=== PATIENT | female | born 1935 | race Caucasian/White ===

== ENCOUNTER 2017-05-09 08:52 | Emergency (ER) | payer MEDICARE, OTHER ==
[2017-05-09 09:46] LABS: #Basophils 0.1 thou/uL (0.0-0.2); #Eosinphils 0.1 thou/uL (0.0-0.7); #Lymphocytes 2.3 thou/uL (1.20-3.40); #Monocytes 0.5 thou/uL (0.11-0.59); #Neutrophils 10.7 thou/uL (1.40-6.50); %Basophils 0.5 % (0.0-1.0); %Eosinophils 0.5 % (0.0-10.0); %Lymphocytes 16.7 % (21.0-51.0); %Monocytes 3.8 % (0.0-10.0); %Neutrophils 78.5 % (42.0-75.0); Hemoglobin 11.2 g/dL (12.0-16.0); Mean Corpuscular HGB CONC 31.4 g/dL (32.0-36.0); Mean Corpuscular Hemoglobin 30.7 pg (27.0-31.0); Mean Corpuscular Volume 97.8 fl (81.0-99.0); Mean Platelet Volume 7.7 fL (7.4-10.4); Platelet Count 244 thou/uL (130-400); RBC Distribution Width 14.8 % (11.5-14.5); Red Blood Cell (RBC) Count 3.65 mill/uL (4.20-5.40); White Blood Cell (WBC) Count 13.6 thou/uL (4.8-10.8)
[2017-05-09 10:11] LABS: ALT (SGPT) 10 U/L (8-55); AST (SGOT) 11 U/L (5-34); Albumin 3.4 g/dL (3.4-4.8); Alkaline Phosphatase 117 U/L (40-150); Anion Gap 13 mmol/L (10-20); BUN (Urea Nitrogen) 37 mg/dL (9.8-20.1); Bilirubin, Total 0.8 mg/dL (0.2-1.2); CRP (Inflammatory) 0.5 mg/dL (= or < 0.5); Calc. Creatinine Clearance 0 mL/min (70-130); Calcium 9.7 mg/dL (7.8-10.44); Carbon Dioxide 23 mmol/L (23-31); Chloride 105 mmol/L (98-107); Estimated GFR-MDRD 49; Globulin 3.4 g/dL (2.4-3.5); Glucose 147 mg/dL (83-110); Potassium 5.2 mmol/L (3.5-5.1); Protein, Total 6.8 g/dL (6.0-8.3); Sodium 136 mmol/L (136-145); Uric Acid 3.7 mg/dL (2.6-6.0)
[2017-05-09] MEDS ORDERED: predniSONE 20 MG TAB ONE (11:23)
--- NOTE | 2017-05-17 18:03 | EKG ---
Test Reason : L ARM PAIN Blood Pressure : / mmHG Vent. Rate : 063 BPM Atrial Rate : 063 BPM P-R Int : 172 ms QRS Dur : 082 ms QT Int : 382 ms P-R-T Axes : -04 -25 076 degrees QTc Int : 390 ms Normal sinus rhythm Moderate voltage criteria for LVH, may be normal variant Borderline ECG Confirmed by JONH AVINA, HERNANDO ([id number]), videotape editor CARRI SOLORIO ([id number]) on 05/17/2017 6:03:12 PM Referred By: Confirmed By:HERNANDO BORJA MD
== END 2017-05-09 11:48 | disposition home or self-care (01) ==
LOC: ERS 08:52
DX: M19.042 Primary osteoarthritis, left hand (principal); E78.5 Hyperlipidemia, unspecified; E11.9 Type 2 diabetes mellitus without complications; E03.9 Hypothyroidism, unspecified; I10 Essential (primary) hypertension; I25.10 Atherosclerotic heart disease of native coronary artery without angina pectoris; K21.9 Gastro-esophageal reflux disease without esophagitis; Z86.73 Personal history of transient ischemic attack (TIA), and cerebral infarction without residual deficits
CPT/HCPCS: 36415; 80053; 84550; 85025; 85652; 86140; 93005; J7506

== ENCOUNTER 2019-03-10 09:10 | Outpatient (CLI) | payer MEDICARE ==
--- NOTE | 2019-03-10 10:49 | ULT ---
RENAL ULTRASOUND: 03/10/2019 PROVIDED CLINICAL HISTORY: Chronic kidney disease. COMPARISON: 05/28/2016 FINDINGS: The right kidney measures about 10.4 x 5.5 x 6 cm and demonstrates no evidence for hydronephrosis. Nu merous cysts are present, some of which demonstrate apparently thickened internal septations. No defi nite uniformly solid mass or evidence for a sonographically apparent calculus. The left kidney measures about 12.3 x 6.1 x 6.2 cm and demonstrates numerous renal cysts, some of whi ch demonstrate internal septation. No evidence for a uniformly solid mass or sonographically apparent calculus. No evidence for hydronephrosis. The urinary bladder is decompressed and not well evaluated. IMPRESSION: 1. No evidence for hydronephrosis. 2. Bilateral renal cysts, some of which appear complex and are incompletely characterized sonographic ally. Evaluation for stability with regard to the prior imaging study is difficult on the basis of di fferences in sonographic interrogation. Correlation with CT with and without intravenous contrast may be useful for further characterization. POS: OFF
== END 2019-03-10 09:11 | disposition home or self-care (01) ==
LOC: BICULT 09:10
PROVIDERS: ATTEND Internal Medicine Nephrology
DX: I12.9 Hypertensive chronic kidney disease with stage 1 through stage 4 chronic kidney disease, or unspecified chronic kidney disease (principal); N18.3 Chronic kidney disease, stage 3 (moderate); N28.1 Cyst of kidney, acquired
CPT/HCPCS: 76770

== ENCOUNTER 2021-09-28 12:34 | Inpatient (IN) | payer MEDICARE ==
[2021-09-28 13:18] LABS: #Basophils 0.1 thou/uL (0.0-0.2); #Eosinphils 0.5 thou/uL (0.0-0.7); #Lymphocytes 1.7 thou/uL (1.20-3.40); #Neutrophils 6.7 thou/uL (1.40-6.50); %Basophils 0.5 % (0.0-1.0); %Eosinophils 4.6 % (0.0-10.0); %Lymphocytes 17.5 % (21.0-51.0); %Monocytes 10.1 % (0.0-10.0); %Neutrophils 67.3 % (42.0-75.0); Hemoglobin 9.4 g/dL (12.0-16.0); Mean Corpuscular HGB CONC 32.1 g/dL (32.0-36.0); Mean Corpuscular Hemoglobin 31.1 pg (27.0-31.0); Mean Corpuscular Volume 97.1 fL (78.0-98.0); Mean Platelet Volume 7.4 fL (7.4-10.4); Platelet Count 253 thou/uL (130-400); RBC Distribution Width 14.6 % (11.5-14.5); Red Blood Cell (RBC) Count 3.01 mill/uL (4.20-5.40); White Blood Cell (WBC) Count 9.9 thou/uL (4.8-10.8)
[2021-09-28 13:38] LABS: ALT (SGPT) 12 U/L (8-55); AST (SGOT) 14 U/L (5-34); Alkaline Phosphatase 146 U/L (40-110); Anion Gap 15 mmol/L (10-20); BUN (Urea Nitrogen) 61 mg/dL (9.8-20.1); Bilirubin, Total 0.6 mg/dL (0.2-1.2); Calc. Creatinine Clearance 0 mL/min (70-130); Calcium 9.1 mg/dL (7.8-10.44); Carbon Dioxide 20 mmol/L (23-31); Chloride 93 mmol/L (98-107); Estimated GFR 19; Globulin 3.2 g/dL (2.4-3.5); Glucose 118 mg/dL (83-110); Potassium 4.6 mmol/L (3.5-5.1); Protein, Total 6.2 g/dL (5.8-8.1); Sodium 123 mmol/L (136-145)
[2021-09-28 13:53] LABS: Bacteria/HPF 1+ HPF (None Seen); Bilirubin Negative (Negative); Blood, Urine Negative (Negative); Clarity Extra Turbid (Clear); Glucose, Urine (Dipstick) Normal (Negative); Ketone, Urine Negative (Negative); Leukocyte 500 Leu/uL (Negative); Nitrite 1+ (Negative); Protein, Urine (Dipstick) 30 mg/dL (Neg-Trace); RBC/HPF 0-3 HPF (0-3); Specific Gravity, Urine 1.007 (1.002-1.036); Squamous Epithelial 0-3 HPF (0-3); Urobilinogen Normal mg/dL (Less than 2); WBC/HPF Greater than 50 HPF (0-3); pH, Urine 5.5 (5.0-9.0)
[2021-09-28] MEDS ORDERED: Acetaminophen 500 MG TAB ONE (16:33)
[2021-09-28] MEDS ORDERED: Ondansetron PF 4 MG/2 ML Vial ONE (16:39)
[2021-09-28] MEDS ORDERED: Morphine 2 MG/ML VIAL ONE (16:40)
[2021-09-28] MEDS ORDERED: cefTRIAXone\\ROCEPHIN 1 GM VIAL ONE (16:52)
[2021-09-28] MEDS ORDERED: HumaLOG 300 UNITS/3 ML VIAL SC PRN ×2 (17:30)
[2021-09-28] MEDS ORDERED: Dextrose 5% in Water 1,000 ML IV PRN (17:30)
[2021-09-28] MEDS ORDERED: Dextrose 50% Abboject 50 ML SYRINGE SLOW IVP PRN (17:30)
[2021-09-28] MEDS ORDERED: Non-Formulary Item 1 EACH (Acetaminophen [Tylenol] 325 MG Capsule) PO PRN (18:36)
[2021-09-28 19:41] VITALS: BMI 28.3
[2021-09-28] MEDS ORDERED: Acetaminophen 500 MG TAB PO SCH (19:45)
[2021-09-28] MEDS ORDERED: Lactated Ringer's 1,000 ML IV SCH (19:45)
[2021-09-28] MEDS: Heparin 5,000 UNITS/ML VIAL SC SCH (20:02)
[2021-09-28] MEDS: Atorvastatin Calcium 40 MG TAB PO SCH (20:09)
[2021-09-28] MEDS: Amlodipine 10 MG TAB PO SCH (20:10)
[2021-09-28] MEDS: Carvedilol 25 MG TAB PO SCH (20:10)
[2021-09-28] MEDS: Montelukast Sodium 10 mg Tablet PO SCH (20:10)
[2021-09-28] MEDS: Aspirin Chewable 81 MG TAB PO SCH (20:10)
[2021-09-28 23:38] LABS: Anion Gap 16 mmol/L (10-20); BUN (Urea Nitrogen) 63 mg/dL (9.8-20.1); Calc. Creatinine Clearance 19 mL/min (70-130); Carbon Dioxide 17 mmol/L (23-31); Chloride 95 mmol/L (98-107); Estimated GFR 20; Glucose 107 mg/dL (83-110); Potassium 5.4 mmol/L (3.5-5.1); Sodium 123 mmol/L (136-145)
[2021-09-28] MEDS ORDERED: Cosyntropin 250 MCG VIAL SLOW IVP SCH (23:45)
[2021-09-29] MEDS ORDERED: Sodium Bicarbonate Tab 325 MG TAB PO SCH ×2 (00:30→09:00)
[2021-09-29] MEDS: Levothyroxine Sodium 112 MCG TAB PO SCH (05:58)
[2021-09-29] MEDS: Levothyroxine Sodium 25 MCG TAB PO SCH (05:58)
[2021-09-29 06:51] LABS: Anion Gap 10 mmol/L (10-20); BUN (Urea Nitrogen) 59 mg/dL (9.8-20.1); Calc. Creatinine Clearance 20 mL/min (70-130); Calcium 8.7 mg/dL (7.8-10.44); Carbon Dioxide 23 mmol/L (23-31); Chloride 97 mmol/L (98-107); Estimated GFR 21; Glucose 81 mg/dL (83-110); Potassium 4.8 mmol/L (3.5-5.1); Sodium 125 mmol/L (136-145)
[2021-09-29] MEDS: Carvedilol 25 MG TAB PO SCH ×2 (08:51→20:39)
[2021-09-29] MEDS: Gabapentin 100 MG CAP PO SCH (08:51)
[2021-09-29] MEDS: Heparin 5,000 UNITS/ML VIAL SC SCH ×3 (08:51→19:04)
[2021-09-29] MEDS ORDERED: LEVOTHYROXINE SODIUM 125 MCG PO SCH (09:00)
[2021-09-29] MEDS ORDERED: Trospium 20 MG TAB PO SCH (09:00)
[2021-09-29] MEDS: Acetaminophen 325 MG TAB PO PRN (11:02)
[2021-09-29] MEDS: Diclofenac 1% 100 GM GEL TP SCH ×3 (12:51→20:33)
[2021-09-29] MEDS ORDERED: Magnevist 469MG/ML 20 ML VIAL ONE (15:31)
[2021-09-29] MEDS: cefTRIAXone\\ROCEPHIN 1 GM in Sodium Chloride 0.9% 100 ML IVPB SCH (16:27)
[2021-09-29 18:28] LABS: BUN (Urea Nitrogen) 59 mg/dL (9.8-20.1); Calc. Creatinine Clearance 19 mL/min (70-130); Calcium 8.6 mg/dL (7.8-10.44); Carbon Dioxide 15 mmol/L (23-31); Chloride 98 mmol/L (98-107); Estimated GFR 20; Glucose 149 mg/dL (83-110); Potassium 5.6 mmol/L (3.5-5.1); Sodium 123 mmol/L (136-145)
[2021-09-29 18:43] LABS: Anion Gap 19 mmol/L (10-20)
[2021-09-29] MEDS: Aspirin Chewable 81 MG TAB PO SCH (19:04)
[2021-09-29] MEDS ORDERED: Furosemide 20 MG TAB PO SCH (19:15)
[2021-09-29] MEDS: Montelukast Sodium 10 mg Tablet PO SCH (20:39)
[2021-09-29] MEDS: Atorvastatin Calcium 40 MG TAB PO SCH (20:39)
[2021-09-29] MEDS: Amlodipine 10 MG TAB PO SCH (20:39)
[2021-09-29] MEDS: Sodium Bicarbonate Tab 325 MG TAB PO SCH (20:39)
[2021-09-30] MEDS: Levothyroxine Sodium 25 MCG TAB PO SCH (05:58)
[2021-09-30] MEDS: Levothyroxine Sodium 112 MCG TAB PO SCH (05:58)
[2021-09-30 07:02] LABS: Anion Gap 14 mmol/L (10-20); BUN (Urea Nitrogen) 62 mg/dL (9.8-20.1); Calc. Creatinine Clearance 18 mL/min (70-130); Carbon Dioxide 21 mmol/L (23-31); Chloride 99 mmol/L (98-107); Estimated GFR 19; Glucose 109 mg/dL (83-110); Sodium 129 mmol/L (136-145)
[2021-09-30] MEDS: Sodium Bicarbonate Tab 325 MG TAB PO SCH ×2 (07:55→22:14)
[2021-09-30] MEDS: Gabapentin 100 MG CAP PO SCH (07:56)
[2021-09-30] MEDS: Carvedilol 25 MG TAB PO SCH ×2 (07:56→22:15)
[2021-09-30] MEDS: Diclofenac 1% 100 GM GEL TP SCH ×4 (07:57→22:17)
[2021-09-30] MEDS: Heparin 5,000 UNITS/ML VIAL SC SCH ×3 (07:57→22:15)
[2021-09-30] MEDS ORDERED: Furosemide 20 MG TAB PO SCH (09:00)
[2021-09-30] MEDS: Acetaminophen 325 MG TAB PO PRN ×2 (11:46→22:15)
[2021-09-30] MEDS: cefTRIAXone\\ROCEPHIN 1 GM in Sodium Chloride 0.9% 100 ML IVPB SCH (16:48)
[2021-09-30 18:25] LABS: Anion Gap 13 mmol/L (10-20); BUN (Urea Nitrogen) 58 mg/dL (9.8-20.1); Calc. Creatinine Clearance 20 mL/min (70-130); Calcium 8.8 mg/dL (7.8-10.44); Carbon Dioxide 22 mmol/L (23-31); Chloride 98 mmol/L (98-107); Estimated GFR 22; Glucose 118 mg/dL (83-110); Potassium 4.4 mmol/L (3.5-5.1); Sodium 129 mmol/L (136-145)
[2021-09-30] MEDS: Amlodipine 10 MG TAB PO SCH (22:14)
[2021-09-30] MEDS: Montelukast Sodium 10 mg Tablet PO SCH (22:14)
[2021-09-30] MEDS: Aspirin Chewable 81 MG TAB PO SCH (22:15)
[2021-09-30] MEDS: Atorvastatin Calcium 40 MG TAB PO SCH (22:15)
[2021-10-01] MEDS: Acetaminophen 325 MG TAB PO PRN (05:14)
[2021-10-01] MEDS: Levothyroxine Sodium 112 MCG TAB PO SCH (05:19)
[2021-10-01] MEDS: Levothyroxine Sodium 25 MCG TAB PO SCH (05:21)
[2021-10-01 06:55] LABS: Anion Gap 13 mmol/L (10-20); BUN (Urea Nitrogen) 56 mg/dL (9.8-20.1); Calc. Creatinine Clearance 24 mL/min (70-130); Carbon Dioxide 22 mmol/L (23-31); Chloride 100 mmol/L (98-107); Estimated GFR 26; Glucose 110 mg/dL (83-110); Potassium 4.6 mmol/L (3.5-5.1); Sodium 130 mmol/L (136-145)
[2021-10-01] MEDS: Carvedilol 25 MG TAB PO SCH (08:01)
[2021-10-01] MEDS: Heparin 5,000 UNITS/ML VIAL SC SCH (08:01)
[2021-10-01] MEDS: Sodium Bicarbonate Tab 325 MG TAB PO SCH (08:01)
[2021-10-01] MEDS: Diclofenac 1% 100 GM GEL TP SCH ×2 (08:02→12:30)
[2021-10-01 08:29] VITALS: TEMP 97.6
[2021-10-01] MEDS ORDERED: Ondansetron PF 4 MG/2 ML Vial ONE (10:35)
[2021-10-01] MEDS ORDERED: Morphine 2 MG/ML VIAL ONE (10:35)
[2021-10-01] MEDS ORDERED: Lisinopril 5 MG TAB PO SCH (11:30)
[2021-10-01 12:30] VITALS: BP 147/72
[2021-10-02] MEDS ORDERED: Lisinopril 5 MG TAB PO SCH (09:00)
== END 2021-10-01 16:10 | disposition home health service (06) | DRG 644 ==
LOC: ERS 12:34 → T4-A 17:30 → OBSVTOIN 10-01 12:25
PROVIDERS: ADMIT Student in an Organized Health Care Education/Training Program; ATTEND Student in an Organized Health Care Education/Training Program
DX: E22.2 Syndrome of inappropriate secretion of antidiuretic hormone (principal); N30.00 Acute cystitis without hematuria; N25.81 Secondary hyperparathyroidism of renal origin; N18.4 Chronic kidney disease, stage 4 (severe); K86.3 Pseudocyst of pancreas; Z20.822 Contact with and (suspected) exposure to COVID-19; E87.5 Hyperkalemia; E78.5 Hyperlipidemia, unspecified; K86.89 Other specified diseases of pancreas; E03.9 Hypothyroidism, unspecified; M10.9 Gout, unspecified; E11.22 Type 2 diabetes mellitus with diabetic chronic kidney disease; I12.9 Hypertensive chronic kidney disease with stage 1 through stage 4 chronic kidney disease, or unspecified chronic kidney disease; N32.81 Overactive bladder; J30.9 Allergic rhinitis, unspecified; K21.9 Gastro-esophageal reflux disease without esophagitis; M19.90 Unspecified osteoarthritis, unspecified site; F41.9 Anxiety disorder, unspecified; D63.1 Anemia in chronic kidney disease; I44.0 Atrioventricular block, first degree; Z79.899 Other long term (current) drug therapy; Z79.890 Hormone replacement therapy; Z79.84 Long term (current) use of oral hypoglycemic drugs; Z79.82 Long term (current) use of aspirin; Z86.73 Personal history of transient ischemic attack (TIA), and cerebral infarction without residual deficits; Z98.49 Cataract extraction status, unspecified eye; Z90.710 Acquired absence of both cervix and uterus; Z82.49 Family history of ischemic heart disease and other diseases of the circulatory system; Z87.440 Personal history of urinary (tract) infections
CPT/HCPCS: 36415; 36416; 74176; 74183; 80048; 80053; 80400; 81003; 81015; 83605; 83930; 83935; 84300; 84443; 85025; 87040; 87086; 93005; 93010; 96365; 96366; 96375; A9579; G0378; J0696; J0834; J1644; J2270; J2405; J3490; U0003; U0005

== ENCOUNTER 2022-02-05 14:37 | Outpatient (CLI) | payer MEDICARE | END 2022-02-05 14:38 | disposition home or self-care (01) | LOC: DTY/OP 14:37 | PROVIDERS: ATTEND Family Medicine | DX: I12.9 Hypertensive chronic kidney disease with stage 1 through stage 4 chronic kidney disease, or unspecified chronic kidney disease (principal); E11.21 Type 2 diabetes mellitus with diabetic nephropathy; E11.22 Type 2 diabetes mellitus with diabetic chronic kidney disease; N18.4 Chronic kidney disease, stage 4 (severe) | CPT/HCPCS: 97802 ==

== ENCOUNTER 2022-03-17 22:03 | Inpatient (IN) | payer MEDICARE ==
[2022-03-17] MEDS ORDERED: Ondansetron PF 4 MG/2 ML Vial ONE (22:32)
[2022-03-17] MEDS ORDERED: Albuterol 200 PUFF (6.7GM INHALER) ONE (22:36)
[2022-03-17 22:46] LABS: #Monocytes 0.5 thou/uL (0.11-0.59); #Neutrophils 9.1 thou/uL (1.40-6.50); %Basophils 0.3 % (0.0-1.0); %Eosinophils 0.2 % (0.0-10.0); %Lymphocytes 17.1 % (21.0-51.0); %Monocytes 4.4 % (0.0-10.0); %Neutrophils 78.1 % (42.0-75.0); Hemoglobin 10.8 g/dL (12.0-16.0); Mean Corpuscular HGB CONC 31.6 g/dL (32.0-36.0); Mean Corpuscular Hemoglobin 33.1 pg (27.0-31.0); Mean Platelet Volume 8.6 fL (7.4-10.4); Platelet Count 152 10x3/uL (130-400); RBC Distribution Width 15.8 % (11.5-14.5); Red Blood Cell (RBC) Count 3.27 mill/uL (4.20-5.40); White Blood Cell (WBC) Count 11.7 10x3/uL (4.8-10.8)
[2022-03-17 23:03] LABS: ALT (SGPT) 19 U/L (8-55); AST (SGOT) 26 U/L (5-34); Albumin 3.1 g/dL (3.4-4.8); Alkaline Phosphatase 103 U/L (40-110); Anion Gap 17 mmol/L (10-20); BUN (Urea Nitrogen) 65 mg/dL (9.8-20.1); Bilirubin, Total 0.6 mg/dL (0.2-1.2); Calc. Creatinine Clearance 0 mL/min (70-130); Calcium 8.8 mg/dL (7.8-10.44); Carbon Dioxide 21 mmol/L (23-31); Chloride 105 mmol/L (98-107); Estimated GFR 20; Globulin 3.1 g/dL (2.4-3.5); Glucose 81 mg/dL (83-110); Potassium 4.9 mmol/L (3.5-5.1); Protein, Total 6.2 g/dL (5.8-8.1); Sodium 138 mmol/L (136-145)
[2022-03-18] MEDS ORDERED: Acetaminophen 500 MG TAB ONE (00:34)
[2022-03-18 01:10] LABS: SARS-CoV-2 NAA Rapid Test DETECTED (NotDetected)
[2022-03-18] MEDS ORDERED: Cefepime 2 GM VIAL ONE (02:02)
[2022-03-18] MEDS ORDERED: Ondansetron PF 4 MG/2 ML Vial IVP PRN ×2 (02:15→04:23)
[2022-03-18] MEDS ORDERED: Acetaminophen 325 MG TAB PO PRN ×2 (02:15→04:17)
[2022-03-18] MEDS ORDERED: Ondansetron ODT 4 MG TAB SL PRN (02:15)
[2022-03-18] MEDS: Lactated Ringer's 1,000 ML IV SCH ×2 (03:20→09:24)
[2022-03-18] MEDS ORDERED: Lactated Ringer's 500 ML IV SCH ×2 (04:00→04:15)
[2022-03-18] MEDS ORDERED: Albuterol 200 PUFF (6.7GM INHALER) INH PRN (04:17)
[2022-03-18] MEDS ORDERED: Acetaminophen 650 MG Suppository PR PRN (04:17)
[2022-03-18] MEDS ORDERED: Benzonatate 100 MG CAP PO PRN (04:17)
[2022-03-18] MEDS ORDERED: Ondansetron ODT 4 MG TAB PO PRN (04:23)
[2022-03-18] MEDS ORDERED: REMDESIVIR 200 MG in Sodium Chloride 0.9% 250 ML 210 ML IV SCH (04:30)
[2022-03-18 05:36] LABS: ALT (SGPT) 16 U/L (8-55); AST (SGOT) 27 U/L (5-34); Albumin 2.4 g/dL (3.4-4.8); Alkaline Phosphatase 84 U/L (40-110); Bilirubin, Direct 0.1 mg/dL (0.1-0.3); Bilirubin, Total 0.4 mg/dL (0.2-1.2)
[2022-03-18] MEDS ORDERED: Acetaminophen 325 MG TAB ONE ×2 (05:54→13:24)
[2022-03-18] MEDS ORDERED: Cepastat Lozenges 1 LOZ PO PRN (05:57)
[2022-03-18 07:34] LABS: ALT (SGPT) 16 U/L (8-55); AST (SGOT) 28 U/L (5-34); Albumin 2.4 g/dL (3.4-4.8); Alkaline Phosphatase 86 U/L (40-110); Anion Gap 15 mmol/L (10-20); BUN (Urea Nitrogen) 63 mg/dL (9.8-20.1); Bilirubin, Total 0.4 mg/dL (0.2-1.2); Calc. Creatinine Clearance 0 mL/min (70-130); Calcium 8.1 mg/dL (7.8-10.44); Carbon Dioxide 15 mmol/L (23-31); Chloride 108 mmol/L (98-107); Estimated GFR 21; Globulin 2.7 g/dL (2.4-3.5); Glucose 69 mg/dL (83-110); Protein, Total 5.1 g/dL (5.8-8.1); Sodium 133 mmol/L (136-145)
[2022-03-18] MEDS ORDERED: Pantoprazole 40 MG VIAL ONE (09:04)
[2022-03-18] MEDS: Pantoprazole 40 MG VIAL IVP SCH (09:13)
[2022-03-18] MEDS: Dexamethasone 10 MG/ML VIAL SLOW IVP SCH (09:13)
[2022-03-18 10:16] LABS: #Lymphocytes 1.5 thou/uL (1.20-3.40); #Monocytes 0.5 thou/uL (0.11-0.59); #Neutrophils 5.8 thou/uL (1.40-6.50); %Basophils 0.2 % (0.0-1.0); %Eosinophils 0.2 % (0.0-10.0); %Monocytes 6.3 % (0.0-10.0); %Neutrophils 74.2 % (42.0-75.0); Hemoglobin 9.8 g/dL (12.0-16.0); Mean Corpuscular HGB CONC 30.6 g/dL (32.0-36.0); Mean Corpuscular Hemoglobin 32.4 pg (27.0-31.0); Mean Platelet Volume 8.8 fL (7.4-10.4); Platelet Count 129 10x3/uL (130-400); RBC Distribution Width 15.4 % (11.5-14.5); Red Blood Cell (RBC) Count 3.02 mill/uL (4.20-5.40); White Blood Cell (WBC) Count 7.8 10x3/uL (4.8-10.8)
[2022-03-18] MEDS: Heparin 5,000 UNITS/ML VIAL SC SCH ×3 (11:18→22:26)
[2022-03-18] MEDS ORDERED: Chloraseptic Spray 180 ml Bottle PO PRN (11:24)
[2022-03-18] MEDS ORDERED: Lactated Ringer's 1,000 ML IV SCH (11:44)
[2022-03-18] MEDS ORDERED: Cefepime 2 GM in Sodium Chloride 0.9% 100 ML IVPB SCH (13:00)
[2022-03-18] MEDS ORDERED: Acetaminophen 325 MG Suppository ONE (13:22)
[2022-03-18] MEDS: Acetaminophen 325 MG TAB PO PRN (13:28)
[2022-03-18] MEDS ORDERED: Senokot 8.6 MG TAB PO PRN (14:24)
[2022-03-18] MEDS ORDERED: Artificial Tear Sol 15 ML BOT EA EYE PRN (14:34)
[2022-03-18 17:29] LABS: Analyzer IN Cardio ER; Base Excess (BEa) -9.3 mEq/L (-2.0 to +3.0); CO2 Tension 52.4 mmHg (35.0-45.0); Calcium, Ionized (arterial) 1.25 mmol/L (1.12-1.30); Carboxyhemoglobin (COHb) 0.1 gm% (0.0-3.0); O2 Tension (PaO2), arterial 232.7 mmHg (> 60.0)
[2022-03-18] MEDS ORDERED: Furosemide 40 MG/4 ML VIAL SLOW IVP SCH (17:30)
[2022-03-18 17:40] LABS: Puncture Site RRA; pH, Arterial 7.18 (7.35-7.45)
[2022-03-18] MEDS ORDERED: Furosemide 40 MG/4 ML VIAL ONE (18:09)
[2022-03-18 20:45] LABS: Actual Bicarbonate (HCO3a) 17.8 mEq/L (22-28); Base Excess (BEa) -9.6 mEq/L (-2.0 to +3.0); CO2 Tension 45.6 mmHg (35.0-45.0); Carboxyhemoglobin (COHb) 0.7 gm% (0.0-3.0); Hemoglobin (Hb) 10.7 g/dL (12.0-16.0); O2 Tension (PaO2), arterial 103.3 mmHg (> 60.0); Potassium - ABG Lab 5.36 mmol/L (3.70-5.30); pH, Arterial 7.21 (7.35-7.45)
[2022-03-18 20:48] LABS: Puncture Site LRA
[2022-03-18] MEDS: Allopurinol 300 MG TAB PO SCH (22:27)
[2022-03-18] MEDS: Atorvastatin Calcium 40 MG TAB PO SCH (22:27)
[2022-03-18 22:43] VITALS: BMI 25.4
[2022-03-19 03:09] LABS: #Lymphocytes 0.8 thou/uL (1.20-3.40); #Monocytes 0.3 thou/uL (0.11-0.59); #Neutrophils 5.2 thou/uL (1.40-6.50); %Monocytes 4.4 % (0.0-10.0); %Neutrophils 82.6 % (42.0-75.0); Hemoglobin 10.8 g/dL (12.0-16.0); Mean Corpuscular HGB CONC 31.5 g/dL (32.0-36.0); Mean Corpuscular Hemoglobin 33.6 pg (27.0-31.0); Mean Platelet Volume 9.3 fL (7.4-10.4); Platelet Count 146 10x3/uL (130-400); RBC Distribution Width 15.4 % (11.5-14.5); White Blood Cell (WBC) Count 6.3 10x3/uL (4.8-10.8)
[2022-03-19 03:37] LABS: ALT (SGPT) 13 U/L (8-55); AST (SGOT) 25 U/L (5-34); Albumin 2.9 g/dL (3.4-4.8); Alkaline Phosphatase 98 U/L (40-110); Anion Gap 15 mmol/L (10-20); BUN (Urea Nitrogen) 64 mg/dL (9.8-20.1); Bilirubin, Total 0.5 mg/dL (0.2-1.2); Calc. Creatinine Clearance 18 mL/min (70-130); Carbon Dioxide 18 mmol/L (23-31); Chloride 107 mmol/L (98-107); Estimated GFR 20; Globulin 2.9 g/dL (2.4-3.5); Glucose 99 mg/dL (83-110); Potassium 5.4 mmol/L (3.5-5.1); Protein, Total 5.8 g/dL (5.8-8.1); Sodium 135 mmol/L (136-145)
[2022-03-19] MEDS ORDERED: REMDESIVIR 100 MG in Sodium Chloride 0.9% 250 ML 230 ML IV SCH (04:30)
[2022-03-19] MEDS: Levothyroxine Sodium 112 MCG TAB PO SCH (05:46)
[2022-03-19] MEDS ORDERED: BUDESONIDE 90 MCG INH SCH (09:00)
[2022-03-19] MEDS ORDERED: Sodium Bicarbonate Tab 325 MG TAB PO SCH (09:00)
[2022-03-19] MEDS: Dexamethasone 10 MG/ML VIAL SLOW IVP SCH (09:15)
[2022-03-19] MEDS: Ascorbic Acid 500 mg Chewable Tablet PO SCH (09:15)
[2022-03-19] MEDS: Heparin 5,000 UNITS/ML VIAL SC SCH ×3 (09:15→21:56)
[2022-03-19] MEDS: LOKELMA 5 GM PACKET PO SCH (09:15)
[2022-03-19] MEDS: Alogliptin 6.25 MG TAB PO SCH ×2 (09:16→09:23)
[2022-03-19] MEDS: Cyanocobalamin (Vitamin B-12) 1,000 MCG TAB PO SCH (09:17)
[2022-03-19] MEDS: Pantoprazole 40 MG VIAL IVP SCH (09:17)
[2022-03-19] MEDS: Aspirin Chewable 81 MG TAB PO SCH (09:17)
[2022-03-19] MEDS: Montelukast Sodium 10 mg Tablet PO SCH (09:17)
[2022-03-19] MEDS ORDERED: BARICITINIB IVPB PRN (10:47)
[2022-03-19] MEDS ORDERED: BARICITINIB 1 MG TAB PO SCH (11:15)
[2022-03-19 12:11] LABS: Anion Gap 16 mmol/L (10-20); BUN (Urea Nitrogen) 70 mg/dL (9.8-20.1); Calc. Creatinine Clearance 18 mL/min (70-130); Calcium 8.9 mg/dL (7.8-10.44); Carbon Dioxide 18 mmol/L (23-31); Chloride 107 mmol/L (98-107); Estimated GFR 20; Glucose 105 mg/dL (83-110); Potassium 5.8 mmol/L (3.5-5.1); Sodium 135 mmol/L (136-145)
[2022-03-19] MEDS ORDERED: Furosemide 100 MG/10 ML VIAL SLOW IVP SCH (12:27)
[2022-03-19] MEDS: Acetaminophen 325 MG TAB PO PRN (12:42)
[2022-03-19 12:54] VITALS: BP 150/58
[2022-03-19 16:12] LABS: Anion Gap 16 mmol/L (10-20); BUN (Urea Nitrogen) 72 mg/dL (9.8-20.1); Calc. Creatinine Clearance 18 mL/min (70-130); Calcium 8.9 mg/dL (7.8-10.44); Carbon Dioxide 16 mmol/L (23-31); Chloride 106 mmol/L (98-107); Estimated GFR 20; Glucose 116 mg/dL (83-110); Sodium 132 mmol/L (136-145)
[2022-03-19] MEDS: traMADol HCl 50 MG TAB PO PRN (17:08)
[2022-03-19] MEDS ORDERED: Sodium Bicarbonate 150 MEQ in Dextrose 5% in Water 1,000 ML IV SCH (17:45)
[2022-03-19] MEDS: Atorvastatin Calcium 40 MG TAB PO SCH (21:56)
[2022-03-19] MEDS: Allopurinol 300 MG TAB PO SCH (21:56)
[2022-03-20 02:34] LABS: Phosphorus 5.6 mg/dL (2.3-4.7)
[2022-03-20 02:38] LABS: Anion Gap 14 mmol/L (10-20); BUN (Urea Nitrogen) 70 mg/dL (9.8-20.1); Calc. Creatinine Clearance 17 mL/min (70-130); Calcium 8.7 mg/dL (7.8-10.44); Carbon Dioxide 24 mmol/L (23-31); Chloride 105 mmol/L (98-107); Estimated GFR 19; Glucose 130 mg/dL (83-110); Magnesium 2.1 mg/dL (1.6-2.6); Potassium 4.6 mmol/L (3.5-5.1); Sodium 138 mmol/L (136-145)
[2022-03-20] MEDS: traMADol HCl 50 MG TAB PO PRN ×3 (04:50→21:51)
[2022-03-20] MEDS: Levothyroxine Sodium 112 MCG TAB PO SCH (04:51)
[2022-03-20] MEDS ORDERED: Calcitriol 0.25 MCG CAP PO SCH (09:00)
[2022-03-20] MEDS ORDERED: Allopurinol 300 MG TAB PO SCH (09:14)
[2022-03-20] MEDS: Cyanocobalamin (Vitamin B-12) 1,000 MCG TAB PO SCH (09:16)
[2022-03-20] MEDS: Aspirin Chewable 81 MG TAB PO SCH (09:16)
[2022-03-20] MEDS: Ascorbic Acid 500 mg Chewable Tablet PO SCH (09:17)
[2022-03-20] MEDS: Heparin 5,000 UNITS/ML VIAL SC SCH ×3 (09:17→21:50)
[2022-03-20] MEDS: BARICITINIB 1 MG TAB PO SCH (09:17)
[2022-03-20] MEDS: Alogliptin 6.25 MG TAB PO SCH (09:17)
[2022-03-20] MEDS: Dexamethasone 10 MG/ML VIAL SLOW IVP SCH (09:17)
[2022-03-20] MEDS: LOKELMA 5 GM PACKET PO SCH (09:19)
[2022-03-20] MEDS: Montelukast Sodium 10 mg Tablet PO SCH (09:19)
[2022-03-20] MEDS: Acetaminophen 325 MG TAB PO PRN (14:30)
[2022-03-20] MEDS: Atorvastatin Calcium 40 MG TAB PO SCH (21:50)
[2022-03-21] MEDS: Acetaminophen 325 MG TAB PO PRN (02:21)
[2022-03-21 03:34] LABS: #Basophils 0.1 thou/uL (0.0-0.2); #Lymphocytes 0.7 thou/uL (1.20-3.40); #Monocytes 0.4 thou/uL (0.11-0.59); #Neutrophils 4.2 thou/uL (1.40-6.50); %Basophils 0.9 % (0.0-1.0); %Eosinophils 0.1 % (0.0-10.0); %Lymphocytes 12.5 % (21.0-51.0); %Monocytes 8.1 % (0.0-10.0); %Neutrophils 78.4 % (42.0-75.0); Hemoglobin 11.1 g/dL (12.0-16.0); Mean Corpuscular HGB CONC 31.7 g/dL (32.0-36.0); Mean Corpuscular Hemoglobin 32.7 pg (27.0-31.0); Mean Platelet Volume 9.1 fL (7.4-10.4); Platelet Count 170 10x3/uL (130-400); RBC Distribution Width 15.2 % (11.5-14.5); Red Blood Cell (RBC) Count 3.39 mill/uL (4.20-5.40); White Blood Cell (WBC) Count 5.3 10x3/uL (4.8-10.8)
[2022-03-21] MEDS: Levothyroxine Sodium 112 MCG TAB PO SCH (05:30)
[2022-03-21] MEDS: Aspirin Chewable 81 MG TAB PO SCH (08:16)
[2022-03-21] MEDS: Cyanocobalamin (Vitamin B-12) 1,000 MCG TAB PO SCH (08:16)
[2022-03-21] MEDS: Montelukast Sodium 10 mg Tablet PO SCH (08:16)
[2022-03-21] MEDS: Dexamethasone 10 MG/ML VIAL SLOW IVP SCH (08:17)
[2022-03-21] MEDS: Alogliptin 6.25 MG TAB PO SCH (08:17)
[2022-03-21] MEDS: Heparin 5,000 UNITS/ML VIAL SC SCH (08:17)
[2022-03-21] MEDS: traMADol HCl 50 MG TAB PO PRN (08:17)
[2022-03-21] MEDS: Ascorbic Acid 500 mg Chewable Tablet PO SCH (08:17)
[2022-03-21] MEDS: BARICITINIB 1 MG TAB PO SCH (08:17)
[2022-03-21] MEDS ORDERED: FLU VACC QS2022-23(65YR UP)/PF 240 MCG/0.7 ML SYRINGE IM ONE (09:00)
[2022-03-21 12:24] VITALS: TEMP 97.1
[2022-03-21] MEDS: Diclofenac 1% 100 GM GEL TP SCH ×2 (12:29→12:31)
== END 2022-03-21 16:05 | disposition hospice, home (50) | DRG 177 ==
LOC: ERS 22:03 → ERHOLD 03-18 01:57 → IMCU/EMU 03-18 20:08
PROVIDERS: ADMIT Family Medicine; ATTEND Family Medicine
PROC: 8E0ZXY6 Isolation (ICD-10-PCS; 2022-03-18)
PROC: 5A09457 Assistance with Respiratory Ventilation, 24-96 Consecutive Hours, Continuous Positive Airway Pressure (ICD-10-PCS; 2022-03-18)
PROC: XW0DXM6 Introduction of Baricitinib into Mouth and Pharynx, External Approach, New Technology Group 6 (ICD-10-PCS; principal; 2022-03-19)
PROC: 5A0945A Assistance with Respiratory Ventilation, 24-96 Consecutive Hours, High Flow/Velocity Cannula (ICD-10-PCS; 2022-03-19)
PROC: 3E0333Z Introduction of Anti-inflammatory into Peripheral Vein, Percutaneous Approach (ICD-10-PCS; 2022-03-19)
DX: U07.1 COVID-19 (principal); J12.82 Pneumonia due to coronavirus disease 2019; J96.01 Acute respiratory failure with hypoxia; N17.9 Acute kidney failure, unspecified; E87.1 Hypo-osmolality and hyponatremia; N18.4 Chronic kidney disease, stage 4 (severe); I13.0 Hypertensive heart and chronic kidney disease with heart failure and stage 1 through stage 4 chronic kidney disease, or unspecified chronic kidney disease; E87.0 Hyperosmolality and hypernatremia; E87.20 Acidosis, unspecified; Z51.5 Encounter for palliative care; Z66 Do not resuscitate; E78.5 Hyperlipidemia, unspecified; E11.22 Type 2 diabetes mellitus with diabetic chronic kidney disease; E03.9 Hypothyroidism, unspecified; I50.9 Heart failure, unspecified; M10.9 Gout, unspecified; E86.0 Dehydration; E87.5 Hyperkalemia; Z88.2 Allergy status to sulfonamides; Z79.899 Other long term (current) drug therapy; Z90.710 Acquired absence of both cervix and uterus; Z98.890 Other specified postprocedural states; Z90.49 Acquired absence of other specified parts of digestive tract; Z88.8 Allergy status to other drugs, medicaments and biological substances
CPT/HCPCS: 36415; 36416; 36600; 71045; 80053; 80076; 82728; 82805; 83605; 83615; 83735; 83880; 84100; 84145; 85025; 85379; 86140; 87040; 93005; 93306; 94660; C9113; J0692; J1100; J1644; J1940; J1956; J2405; J7070; J7120